=== PATIENT | male | born 1975 | race Caucasian/White ===

== ENCOUNTER 2018-07-24 14:18 | Emergency (ER) | payer OTHER ==
[2018-07-24] MEDS ORDERED: 0.9 % SODIUM CHLORIDE 1,000 ML BAG IV ONE (14:37)
[2018-07-24] MEDS ORDERED: KETOROLAC 30 MG/ML VIAL IVP ONE (14:37)
[2018-07-24] MEDS ORDERED: ONDANSETRON HCL IV 4 MG/2 ML VIAL IVP ONE (14:37)
--- NOTE | 2018-07-24 14:43 | Emergency Department Record ---
History of Present Illness - General Chief complaint: Flank Pain Stated complaint: FLANK PAIN Time Seen by Provider: 07/24/18 14:36 Source: Patient Mode of Arrival: Wheelchair Limitations: No limitations - History of Present Illness Initial comments: 43 yo male presents with left sided pain that started at noon. The pain is sharp. It is located in the left flank and wraps around to the front. No fevers. He has associated nausea and vomiting. No diarrhea. No hematuria. No rash. He has had renal stones many years ago. No swelling. MD Complaint: Other (Left flank pain) Onset/Timin -: Minutes(s) Location: Left flank Radiation: LUQ, LLQ Severity: Moderate Severity scale (1-10): 7 Quality: Aching, Sharp Consistency: Constant Improves with: None Worsens with: None Reports: Denies other symptoms - Related Data Previous Rx's Medication Instructions Recorded Ondansetron [Zofran Odt] 4 mg PO Q8H #15 tab.rapdis 07/24/18 Tamsulosin HCl [Flomax] 0.4 mg PO DAILY #10 cap.er.24h 07/24/18 Allergies Allergy/AdvReac Type Severity Reaction Status Date / Time No Known Drug Allergies Allergy Unverified 07/24/18 14:00 Travel Screening - Travel/Exposure Within Last 30 Days Have you traveled within the last 30 days?: No Review of Systems Constitutional: Denies: Chills, Fever, Malaise, Weakness Eyes: Denies: Eye discharge ENT: Denies: Congestion, Throat pain Respiratory: Denies: Cough Cardiovascular: Denies: Chest pain, Palpitations, Syncope Endocrine: Denies: Fatigue Gastrointestinal: Reports: As per HPI, Abdominal pain, Nausea, Vomiting. Denies : Diarrhea Genitourinary: Denies: Dysuria, Frequency, Hematuria Musculoskeletal: Reports: Back pain Skin: Denies: Bruising, Change in color, Rash Neurological: Denies: Headache Psychiatric: Denies: Anxiety Hematological/Lymphatic: Denies: Easy bleeding, Easy bruising, Swollen glands Past Medical History - SOCIAL HISTORY Smoking Status: Never smoker Alcohol Use: None Drug Use: None - RESPIRATORY Hx Respiratory Disorders: No - CARDIOVASCULAR Hx Cardio Disorders: No - NEURO Hx Neuro Disorders: No - GI Hx GI Disorders: No - Hx Genitourinary Disorders: Yes Hx Kidney Stones: Yes - ENDOCRINE Hx Endocrine Disorders: No - MUSCULOSKELETAL Hx Musculoskeletal Disorders: No - PSYCH Hx Psych Problems: No - HEMATOLOGY/ONCOLOGY Hx Hematology/Oncology Disorders: No Family Medical History Any Significant Family History?: No Physical Exam - General General Appearance: Alert, Oriented x3, Cooperative, No acute distress Limitations: No limitations - Head Head exam: Atraumatic, Normal inspection - Eye Eye exam: Normal appearance. negative: Conjunctival injection - ENT ENT exam: Normal exam Ear exam: Normal external inspection Nasal Exam: Normal inspection Mouth exam: Normal external inspection - Neck Neck exam: Normal inspection, Full ROM. negative: Tenderness - Respiratory Respiratory exam: Normal lung sounds bilaterally. negative: Respiratory distress - Cardiovascular Cardiovascular Exam: Regular rate, Normal rhythm, Normal heart sounds - GI/Abdominal GI/Abdominal exam: Soft. negative: Distended, Guarding, Rebound, Rigid, Tenderness - Rectal Rectal exam: Deferred - exam: Deferred - Extremities Extremities exam: Normal inspection - Back Back exam: Denies: CVA tenderness (R), CVA tenderness (L), Tenderness - Neurological Neurological exam: Alert, Oriented X3 - Psychiatric Psychiatric exam: Normal affect, Normal mood - Skin Skin exam: Dry, Intact, Normal color, Warm Course Vital Signs 07/24/18 14:21 Temperature 97.9 F Pulse Rate 67 Respiratory 18 Rate Blood Pressure 149/95 Pulse Ox 98 - Reevaluation(s) Reevaluation #1: 07/24/18 15:47 The CBC was reviewed WBC is 14 The BMP is normal The patient declined the pain medication stating the pain level was much improved. 07/24/18 15:51 CT demonstrates a 4.7mm proximal Left ureteral stone. Tiny left intrarenal stones as well 07/24/18 16:53 UA was reviewed. No WBC's, Nitrite and LE negative. No convincing signs of infection 07/24/18 17:08 The patient remains pain well controlled We discussed renal stones, home care, follow up and reasons to return to the ED A referral to urology was made Medical Decision Making - Lab Data Result diagrams: 07/24/18 14:25 07/24/18 14:25 Disposition Disposition: Discharge Clinical Impression: Renal colic on left side Disposition: Home, Self-Care Condition: (1) Good Instructions: Kidney Stones (ED) Additional Instructions: Return or be seen immediately if you have uncontrolled pain, fever, vomiting or concerns You have been referred to the urology clinic at [facility] Take the Motrin for pain Take the Flomax as directed Strain the urine to look for a stone Prescriptions: Ondansetron [Zofran Odt] 4 mg PO Q8H #15 tab.rapdis Tamsulosin HCl [Flomax] 0.4 mg PO DAILY #10 cap.er.24h Referrals: CHANTELL BAZAN M.D. [MEDICAL DOCTOR] - [facility] Special[facility] Clin[facility] [Provider Group] Forms: Patient Portal Access Time of Disposition: 17:07 Quality - Quality Measures Quality Measures: N/A - Blood Pressure Screening Does Patient Have Any of the Following: No Blood Pressure Classification: Normal BP Reading Systolic Measurement: 116 Diastolic Measurement: 69 Screening for High Blood Pressure: < Normal BP, F/U Not Required > [G8783]
[2018-07-24 14:54] LABS: HEMATOCRIT 47.9 % (42.0-52.0); HEMOGLOBIN 15.8 gm/dl (14.0-18.0); MEAN CELL VOLUME 86.2 fl (81-97); MEAN CORPUSCULAR HEMOGLOBIN 28.4 pg (27-33); MEAN PLATELET VOLUME 9.1 fl (7.4-10.4); PLATELET COUNT 400 K/uL (130-400); RED BLOOD COUNT 5.56 M/uL (4.40-5.70); RED CELL DISTRIBUTION WIDTH 13.6 % (11.5-14.5); WHITE BLOOD COUNT W/O DIFF 14.3 K/uL (4.2-12.2)
[2018-07-24 15:09] LABS: BLOOD UREA NITROGEN 17 mg/dL (6-20); CREATININE 1.2 mg/dL (0.7-1.2); EST GLOMERULAR FILTRATION RATE > 60 mL/min; TOTAL PROTEIN 7.6 g/dL (6.6-8.7)
[2018-07-24 15:11] LABS: GLUCOSE,RANDOM 112 mg/dL (74-109)
[2018-07-24 15:14] LABS: ALB/GLOB RATIO 1.5 (1.1-1.8); ALBUMIN 4.6 g/dL (4.0-5.0); ALKALINE PHOSPHATASE 109 U/L (40-129); ALT/SGPT 33 U/L (<41); AST/SGOT 23 U/L (10.0-50.0)
[2018-07-24] MEDS ORDERED: TAMSULOSIN HCL 0.4 MG CAP.ER.24H PO ONE (15:52)
[2018-07-24 16:17] LABS: URINE APPEARANCE CLEAR; URINE BILIRUBIN NEGATIVE (NEGATIVE); URINE BLOOD LARGE (NEGATIVE); URINE COLOR YELLOW; URINE GLUCOSE (UA) NEGATIVE (NEGATIVE); URINE KETONE NEGATIVE (NEGATIVE); URINE LEUKOCYTE ESTERASE NEGATIVE (NEGATIVE); URINE NITRITE NEGATIVE (NEGATIVE); URINE PROTEIN NEGATIVE (NEGATIVE); URINE UROBILINOGEN 0.2 E.U./dL (0.20 - 1.00)
[2018-07-24 16:36] LABS: URINE BACTERIA FEW; URINE EPITHELIAL CELLS 0 - 2 (FEW); URINE MUCUS HEAVY; URINE RBC 16 - 25 (NONE SEEN); URINE WBC 0 - 2 (0-2/hpf)
[2018-07-24] MEDS ORDERED: HYDROCODONE/APAP 5/325MG TABLET PO ONE (17:05)
--- NOTE | 2018-07-25 22:35 | CT SCAN REPORT ---
EXAM: CT SCAN ABDOMEN/PELVIS WO CONTRAST HISTORY: LEFT FLANK PAIN TODAY. TECHNIQUE: Axial CT scan of the abdomen and pelvis performed without oral or IV contrast. COMPARISON: None. FINDINGS: No calcified gallstones are seen within the gallbladder. No intrarenal calculi identified on the left. There are a few tiny intrarenal calculi in the left kidney. However in addition, there is mild hydronephrosis and there is a small calculus in the upper left ureter just beyond the left renal pelvis measuring approximately 4.7 mm in size consistent with an upper left ureteral calculus causing a component of obstruction on the left. Distal to this calculus, the left ureter is nondilated with no additional more distal left ureteral calculus evident. No bladder calculus is seen. No hydronephrosis or hydroureter on the right with no right ureteral calculus evident. Some minor prostate calcification. Evaluation of the bowel and viscera extremely limited without oral or IV contrast. Given this limitation, no definite hepatic, splenic, adrenal, pancreatic, or renal mass identified. No appendicitis identified. No free intraperitoneal air or free intraperitoneal fluid identified. 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 IMPRESSION: 1. APPROXIMATELY 4.7 MM CALCULUS IN THE UPPER LEFT URETER CAUSING A COMPONENT OF OBSTRUCTION. 2. THERE IS SOME ADDITIONAL CURRENTLY NONOBSTRUCTING INTRARENAL CALCULI IN THE LEFT KIDNEY WELL. 3. DEGENERATIVE CHANGES IN THE SPINE. 4. NO APPENDICITIS IDENTIFIED. NO FREE AIR OR FREE FLUID EVIDENT. JOB NUMBER: [id number] MTDD
== END 2018-07-24 17:24 | disposition home or self-care (01) ==
LOC: ER 14:18
DX: N20.2 Calculus of kidney with calculus of ureter (principal); R11.2 Nausea with vomiting, unspecified; Z87.442 Personal history of urinary calculi
CPT/HCPCS: 99284; 96374; 99285; 80053; 81001; 85027; 74176; J1885; J7030